=== PATIENT | female | born 1965 | race African-American/Black ===

== ENCOUNTER → 2017-04-02 | Day surgery (SDC) | payer OTHER ==
[~2017-04-02] VITALS: Ht 154.9 cm; Wt 68.5 kg
[~2017-04-02] MED LIST: ABILIFY 10 MG10 MG; ABILIFY15 M1 PO; ABILIFY20 M1 PO; ASPIRIN81 M4 PO; ATORVASTATIN CA80 M1 PO; BENZTROPINE MESY1 M1 PO; BENZTROPINE1 MG PO; COGENTIN; COGENTIN1 MG/ML PO; COLACE100 M1 PO; DEPAKOTE ER 25250 MG; DEPAKOTE ER 25250 MG PO; DEPAKOTE ER250 M1 PO; DETROL LA4 M1 PO; DIVALPROEX SOD500 M1; DIVALPROEX SOD500 M3 PO; FUROSEMIDE20 M1 PO; HALDOL DECA100 MG/ML PO; HALOPERIDO50 MG/1 ML; HCTZ-METOPROLOL1 TA2 PO; LASIX20 M1 PO; LASIX40 M1 PO; LISINOPRIL40 M1 PO; MELATONIN3 M4 PO; MIRALAX17 G1 PO; MOTRIN800 MG PO; MYRBETRIQ25 M1 PO; MYRBETRIQ50 M1 PO; NORVASC5 M1 PO; OMEPRAZOLE20 M2 PO; POTASSIUM CHLO10 ME5 PO; PRILOSEC 20MG C20 MG PO; PROAIR HFA0.09 MG/Ac INH; PROPRANOLOL HCL10 M1 PO; REMERON 15MG TA15 MG PO; REMERON15 M2 PO; REQUIP1 M1 PO; REQUIP1 MG PO; VESICARE 5MG5 MG PO
--- NOTE | 2017-04-02 10:16 | MAMMOGRAPHY REPORT ---
EXAMINATION: MM GUIDED NEEDLE LOCALIZATION BREAST, RIGHT CLINICAL INFORMATION: Preoperative needle localization of right breast papillary lesion. COMPARISON: Ultrasound-guided biopsy and mammogram dated 01/29/2017. TECHNIQUE NEEDLE LOC: Proper informed consent is obtained from the patient after discussion of the procedure, potential risks and complications, and alternatives including declining the procedure today. Patient was given an opportunity for questions. The patient appeared to understand. The patient consented to the procedure and signed the consent form. GUIDANCE: Digital mammography. APPROACH: Lateral. TARGET: Biopsy clip in the upper outer quadrant of the right breast. ANESTHESIA: 10 mL Xylocaine 2%. LOCALIZATION MARKER: NanoCellect 5 cm needle localization system. The skin was prepped and local anesthesia administered. The needle was positioned and position assessed with mammography. The wire was hooked into position. The patient tolerated the procedure well and had no immediate complication. Diagram was marked for the surgeon. The target is a biopsy clip in the upper outer quadrant of the right breast, located at the hook of the wire, 5 cm deep to the skin with 9 cm of the wire remaining external to the skin. IMPRESSION: Status post right breast needle localization with wire hooked into position. The target is a biopsy clip located at the hook of the wire, 5 cm deep to the skin with 9 cm of the wire remaining external to the skin.
--- NOTE | 2017-04-02 14:02 | Operative Report ---
Operative/Inv Procedure Report Surgery Date: 04/02/17 Name of Procedure: Right breast biopsy with wire localization Pre-Operative Diagnosis: Right breast complex sclerosing papillary lesion Post-Operative Diagnosis: Same Estimated Blood Loss: scant Surgeon/Human Resource Statistician: KATALINA GARG MD Anesthesia: laryngeal mask airway Specimens: Right breast biopsy, medial margin Operative/Procedure Note Note: Patient is status post a needle biopsy showing complex sclerosing papillary lesion. She was brought to the operating room on 04/02/2017 after preoperative wire localization was performed the films reviewed. Ancef was given and the right breast was prepped and draped using ChloraPrep. Incision was planned in the 11 o'clock position. Local anesthesia 1% lidocaine mixed half percent Marcaine was given. The patient did not tolerate local anesthesia and therefore was converted to laryngeal mask airway. Incision was made and the wire was brought into the specimen. The air concern was grasped using an Allis clamp and dissected using electrocautery. Specimen was marked for orientation as margin map and intraoperative x-ray failed to show the clip in the specimen. The wire had obviously been dislodged and therefore tissue was taken medially. The medial tissue was more consistent with postbiopsy changes. The medial tissue was marked for orientation with a long suture medial and a short suture at the skin. The specimen did have the clip and calcifications in the x-ray. Hemostasis Was achieved using electrocautery. Deep tissue was approximated using interrupted Vicryl sutures, and the skin was closed using a running subcuticular stitch. Steri-Strips and sterile dressings were applied and the patient was transferred to the recovery room in satisfactory condition having tolerated the procedure well.
--- NOTE | 2017-04-02 16:50 | MAMMOGRAPHY REPORT ---
EXAMINATION: MM NEEDLE LOCALIZATION SPECIMEN FROM THE BREAST, RIGHT CLINICAL INDICATION: Specimen radiograph from right breast, papillary lesion. COMPARISON: Needle localization films from earlier today. TECHNIQUE: Frontal views of 2 specimens were obtained. FINDINGS: The radiograph of the first excised surgical specimen shows that the hookwire is delivered intact, but the marker clip and calcifications are identified in the specimen. On radiograph subsequently obtained of the second excised surgical specimen, inclusion of biopsy clip and calcifications is seen. IMPRESSION: Satisfactory excision of the targeted lesion. These findings were communicated to the surgeon in the OR at the time of specimen radiography.
== END ==
LOC: STS 03:17 → CBW.IIU 10:00 → CBW.MAMMO 10:30
DX: N60.91 Unspecified benign mammary dysplasia of right breast (principal); Z85.42 Personal history of malignant neoplasm of other parts of uterus; I69.351 Hemiplegia and hemiparesis following cerebral infarction affecting right dominant side; I10 Essential (primary) hypertension; K21.9 Gastro-esophageal reflux disease without esophagitis
CPT/HCPCS: 88307; J0131; J0690; J2001; J2250